=== PATIENT | male | born 1990 | race Caucasian/White ===

== ENCOUNTER 2018-06-10 08:13 | Emergency (ER) | payer BC ==
[2018-06-10] MEDS ORDERED: LIDOCAINE 1% INJ-PF (10 MG/ML) 30 ML SDV INJ ONE (09:30)
[2018-06-10] MEDS ORDERED: AZITHROMYCIN 250 MG TABLET PO ONE (09:30)
[2018-06-10] MEDS ORDERED: CEFTRIAXONE INJ 250 MG VIAL IM ONE (09:30)
--- NOTE | 2018-06-10 09:34 | ER Document Report ---
HPI - HPI Pain Level: Denies Notes: Patient is a 28-year-old male who presents with chief complaint of request for STD check. Patient denies any symptoms, denies any contact with anyone who has STDs to states that he "wants to get checked". - CONSTITUTIONAL Constitutional: DENIES: Fever, Chills Past Medical History - General Information source: Patient - Social History Smoking Status: Former Smoker Chew tobacco use (# tins/day): No Frequency of alcohol use: None Drug Abuse: None Family History: Reviewed & Not Pertinent Patient has suicidal ideation: No Patient has homicidal ideation: No - Medical History Medical History: Negative Renal/ Medical History: Denies: Hx Peritoneal Dialysis Surgical Hx: Negative - Immunizations Immunizations up to date: Yes Vertical Provider Document - CONSTITUTIONAL Notes: PHYSICAL EXAMINATION: GENERAL: Well-appearing, well-nourished and in no acute distress. HEAD: Atraumatic, normocephalic. EYES: Pupils equal round extraocular movements intact, conjunctiva are normal. ENT: Nares patent NECK: Normal range of motion LUNGS: No respiratory distress Musculoskeletal: Normal range of motion NEUROLOGICAL: Normal speech, normal gait. PSYCH: Normal mood, normal affect. SKIN: Warm, Dry, normal turgor, no rashes or lesions noted. - INFECTION CONTROL TRAVEL OUTSIDE OF THE [place] IN LAST 30 DAYS: No Course - Re-evaluation Re-evalutation: 06/10/18 09:32 Patient will be treated prophylactically with azithromycin and Rocephin. Will call if results are positive for the chlamydia and gonorrhea. - Vital Signs Vital signs: Temp Pulse Resp BP Pulse Ox 98.1 F 85 15 136/81 H 99 06/10/18 08:16 06/10/18 08:16 06/10/18 08:16 06/10/18 08:16 06/10/18 08:16 Discharge - Discharge Clinical Impression: Concern about STD in male without diagnosis Condition: Stable Disposition: HOME, SELF-CARE Additional Instructions: You have been tested today for chlamydia and gonorrhea. The test results are pending. You have opted to receive prophylactic treatment for these with azithromycin and ceftriaxone. We will call you at the number you listed on your discharge papers if there are positive results on your testing. If your results are positive for refrain from any sexual activity for at least 7 days and please presents to the health department to have them recheck you at that time. Your partner will also need treatment if your results are positive. Referrals: [facility]ALTH [facility]PT,[facility] [NO LOCAL MD] - Follow up as needed
[2018-06-10 09:41] LABS: APPEARANCE,URINE CLEAR; BILIRUBIN,URINE NEGATIVE (NEGATIVE); COLOR,URINE STRAW; GLUCOSE, URINE NEGATIVE (NEGATIVE); KETONES,URINE NEGATIVE (NEGATIVE); LEUKOCYTE ESTERASE,URINE NEGATIVE (NEGATIVE); NITRITE,URINE NEGATIVE (NEGATIVE); PROTEIN,URINE NEGATIVE (NEGATIVE); UROBILINOGEN,URINE NEGATIVE mg/dL (<2.0)
[2018-06-10 09:43] LABS: URINE SPECIFIC GRAVITY 1.008
[2018-06-10 10:28] VITALS: BP 128/74
[2018-06-10 11:34] LABS: CHLAM PCR NOT DETECTED (NOT DETECT); GON PCR NOT DETECTED (NOT DETECT)
== END 2018-06-10 10:47 | disposition home or self-care (01) ==
LOC: ER 08:13
DX: Z20.2 Contact with and (suspected) exposure to infections with a predominantly sexual mode of transmission (principal)
CPT/HCPCS: 99283; 96372; 81001; 87491; 87591; J3490; J0696